=== PATIENT | male | born 2000 | race Caucasian/White ===

== ENCOUNTER 2023-07-18 07:13 | Day surgery (SDC) | payer OTHER ==
[2023-07-17 11:30] VITALS: BMI 21.7
[2023-07-18] MEDS ORDERED: Midazolam HCl 2 mg/2 ml Vial ONE (08:25)
[2023-07-18] MEDS ORDERED: fentaNYL 50 mcg/mL 1 mL Vial ONE ×2 (08:25→12:07)
[2023-07-18] MEDS ORDERED: Ketamine In 0.9 % NaCl 50 MG/5 ML SYRINGE ONE (09:44)
[2023-07-18] MEDS ORDERED: Dexmedetomidine 200 MCG/2 ML VIAL ONE (09:44)
[2023-07-18] MEDS ORDERED: Lidocaine 2% PF 5 ML VIAL ONE (09:48)
[2023-07-18] MEDS ORDERED: PROPOFOL 20 ML ONE ×3 (09:50→10:19)
[2023-07-18] MEDS ORDERED: Sodium Chloride 0.9% 100 ML ONE (09:51)
[2023-07-18] MEDS ORDERED: CEFAZOLIN 2 GM VIAL ONE (09:51)
[2023-07-18] MEDS ORDERED: Glycopyrrolate 0.2 MG/ML 5 ML SYRINGE ONE (10:08)
[2023-07-18] MEDS ORDERED: Ondansetron PF 4 MG/2 ML Vial ONE (10:08)
[2023-07-18] MEDS ORDERED: Rocuronium Bromide 10 MG/ML (10ML VIAL) ONE (10:08)
[2023-07-18] MEDS ORDERED: Dexamethasone 20 MG/5 ML VIAL ONE (10:08)
[2023-07-18] MEDS ORDERED: fentaNYL PF 100 MCG/2 ML SYRINGE ONE ×2 (10:26→11:29)
[2023-07-18] MEDS ORDERED: HYDROmorphone 2 MG/ML VIAL SLOW IVP PRN (10:54)
[2023-07-18] MEDS ORDERED: Ondansetron HCl/PF 4 MG/2 ML Vial IVP PRN (10:54)
[2023-07-18] MEDS ORDERED: Promethazine HCl 25 MG/ML VIAL IM PRN (10:54)
[2023-07-18] MEDS ORDERED: HYDROmorphone 0.5 MG/0.5 ML SYRINGE ONE ×2 (11:43→11:56)
[2023-07-18] MEDS ORDERED: Ketorolac Tromethamine 30 MG (1 mL) VIAL ONE (11:51)
[2023-07-18] MEDS ORDERED: HYDROcodone/Acetaminophen 5/325 mg Tablet ONE (12:42)
== END 2023-07-18 13:25 | disposition home or self-care (01) ==
LOC: SDC 07:13
PROVIDERS: ATTEND Orthopaedic Surgery
PROC: 0PSB04Z Reposition Left Clavicle with Internal Fixation Device, Open Approach (ICD-10-PCS; principal; 2023-07-18)
DX: S42.022A Displaced fracture of shaft of left clavicle, initial encounter for closed fracture (principal); J30.2 Other seasonal allergic rhinitis; Z90.49 Acquired absence of other specified parts of digestive tract; Z87.891 Personal history of nicotine dependence; Z79.899 Other long term (current) drug therapy; V00-Y99 External causes of morbidity
CPT/HCPCS: C1713; J1100; J1170; J1885; J2001; J2250; J2405; J2704; J3010; J3490